=== PATIENT | female | born 1955 | race Caucasian/White ===

== ENCOUNTER 2018-02-03 06:00 | Inpatient (IN) | payer BC, OTHER ==
[2018-01-22 12:06] LABS: HEMATOCRIT 44.8 % (37.0-47.0); HEMOGLOBIN 15.2 gm/dL (12.0-15.0); MCV 88.2 fL (80.0-100.0); RBC 5.09 mil/uL (4.20-5.00); RDW 13.1 % (10.5-14.5); URINE BILIRUBIN NEGATIVE (Negative); URINE BLOOD NEGATIVE (Negative); URINE CLARITY CLEAR; URINE COLOR YELLOW; URINE GLUCOSE-RANDOM* NEGATIVE (Negative); URINE KETONES NEGATIVE (Negative); URINE NITRITE-REFLEX NEGATIVE (Negative); URINE PROTEIN (DIPSTICK) NEGATIVE (Negative); URINE UROBILINOGEN 0.2 E.U./dl (0.2-1.0); WBC 8.1 thou/uL (4.0-11.0)
[2018-01-22 12:07] LABS: URINE LEUKOCYTES-REFLEX 1+ (Negative)
[2018-01-22 12:16] LABS: ALBUMIN 4.3 g/dL (3.4-5.0); CALCIUM 10.3 mg/dL (8.5-10.1); CREATININE 0.8 mg/dL (0.6-1.0); POTASSIUM 4.5 mmol/L (3.5-5.1)
[2018-01-22 12:20] LABS: PROTIME 10.3 Seconds (9.3-11.4)
[2018-01-22 12:28] LABS: SQUAMOUS >10 Many /LPF (0-3)
[2018-01-22 12:29] LABS: CASTS None Seen /LPF (None Seen); CRYSTALS None Seen /LPF (None Seen); URINE RBC None Seen /HPF (0-2); URINE WBC-REFLEX 6-15 Few /HPF (0-5)
[~2018-02-03] VITALS: Ht 167.6 cm; Wt 106.1 kg
[2018-02-03] VITALS (12 sets, daily range): BP systolic 106–145; BP diastolic 44–86
--- NOTE | ~2018-02-03 | O ---
[facility] [place] [address] OPERATIVE REPORT Name: OSCARPAULETTE B Room #: 450-P ADM IN M.R.#: [id number] Admission: 02/03/18 Attend Phys: Jed Garcia MD Discharge: Date of : 53 Report #: [id number] THIS REPORT FOR: //name// CC: Jed Cooper DATE OF SERVICE: 02/03/2018 PREOPERATIVE DIAGNOSIS: End-stage degenerative osteoarthritis, right knee. POSTOPERATIVE DIAGNOSIS: End-stage degenerative osteoarthritis, right knee. PROCEDURE: Right total knee arthroplasty. HISTORY OF PRESENT ILLNESS: This 62-year-old female has progressive degenerative osteoarthritis of the right knee with mild varus malalignment and significant three-compartment degenerative change. She has tried conservative measures for some time, without clear lasting benefit. She has elected to go ahead with right total knee arthroplasty at this time. DESCRIPTION OF PROCEDURE: The patient was taken to the operating room, where she was placed under general anesthesia. A femoral nerve block was also applied. The right leg and knee were meticulously prepped and draped. A thigh tourniquet was applied and inflated to 300 mmHg. An anterior longitudinal skin incision was made and extended through the medial retinaculum. The patella was reflected laterally. Marked degenerative changes in all 3 compartments was noted. The Meneses and NephFusionAds knee system was utilized. Intramedullary guides were used on both the femur and the tibia. The femur was cut in 5 degrees of valgus and the tibia cut perpendicular to the long axis of bone, correcting the mild preoperative varus malalignment. Sufficient bone was resected to correct the mild preoperative flexion contracture. The patellar surface was resected using a patellar clamp and guide. The femur seemed best suited for a size 4 femoral component. The tibia fit nicely with a size 3 tibial component. A 10-mm polyethylene insert resulted in good alignment, full knee extension and flexion beyond 140 degrees. The patella was best suited for a size 32-mm patellar button, which was seated using appropriate anchor holes. The trial components were removed. The intramedullary canal was blocked with a bone block on both the femoral and tibial sides. Methyl methacrylate cement was mixed and injected into the porous surface of the tibia. The permanent components were brought up onto the field. The Meneses and Nephew size 3 Mervat II right tibial baseplate was then inserted into the proximal tibia. It seated nicely and appeared to be secure. Excess cement was removed from around its margin. A 10-mm Legion cruciate-retaining high flexion polyethylene liner was then inserted. This snapped into position and seated nicely and appeared to be secure. A size 4 right cruciate-retaining Legion femoral component was impacted on the distal femur. It also seated nicely and appeared to be secure. A [address] [address] OPERATIVE REPORT Name: PAULETTE MOORE Room #: 450-P [facility] IN M.R.#: [id number] Admission: 02/03/18 Attend Phys: Jed Garcia MD Discharge: Date of : 53 Report #: [id number] Mervat II patellar component using the 32 mm size was then inserted on to the patella using appropriate anchor holes and cement. This was secured with a patellar clamp until the cement had hardened. All excess cement was removed from around the margin of the implants. Once the cement was cured, range of motion and stability was assessed and felt to be satisfactory. The knee demonstrated full knee extension and flexion beyond 140 degrees with good stability. The patella tracked nicely and appeared to be stable. A single Hemovac was left in the wound exiting through a separate stab incision. The tourniquet was deflated after a total tourniquet time of 45 minutes. The fascia was closed with multiple #1 Vicryl sutures. The subcutaneous tissues were closed with 0 Monocryl. The skin was closed with skin sai. A sterile dressing was applied. The patient was awakened and returned to the recovery room in good condition. <ELECTRONICALLY SIGNED> By: Jed Garcia MD 02/04/18 [id number] 1109 Jed Garcia MD /nt
--- NOTE | ~2018-02-03 | EKG ---
[place] [address] [facility] [place] [address] ELECTROCARDIOGRAM REPORT Name: OSCARPAULETTE Room #: [facility]#: [id number] Admission: Attend Phys: Jed Garcia MD Discharge: Date of : 53 Report #: [id number] THIS REPORT FOR: //name// [facility] Test Date: 2018-01-22 Test Time: 12:04:33 Pat Name: PAULETTE MOORE Department: Room: Gender: F Repulping Supervisor: logan : 1955 Requested By: Jed Garcia Order Number: [id number] MD: Terry Gamboa Measurements Intervals [place] Rate: 77 P: -19 [place]: 146 QRS: -48 QRSD: 87 T: 102 QT: 504 QTc: 571 Interpretive Statements Sinus rhythm Abnormal R-wave progression, late transition Possible inferior infarct, age indeterminate Nonspecific T wave abnormality Prolonged QT interval Compared to ECG 03/21/2015 13:42:53 No significant change was found Electronically Signed On 01-23-2018 7:44:35 HEEL BURNISHER by Terry Gamboa [email or web address] <ELECTRONICALLY SIGNED> By: Terry Gamboa MD, [facility] 01/23/18 0744 1204 1204 Terry Gamboa MD, [facility] /EPI
[~2018-02-03 06:00] MED LIST: ASPIRIN325 PO; CENTRUM SILVER1 EAC4 PO; CO Q-10100 MG PO; LISINOPRIL20 MG PO; NAPROSYN500 MG PO; PRAVACHOL20 MG PO; VITAMIN C500 M1 PO
[2018-02-04 03:41] VITALS: BP 121/60
[2018-02-04 05:41] LABS: ABSOLUTE NEUTROPHILS 8.7 thou/uL (1.4-8.2); BASOPHILS 0.1 % (0.0-2.0); EOSINOPHILS 0.1 % (0.0-3.0); HEMATOCRIT 30.7 % (37.0-47.0); HEMOGLOBIN 10.5 gm/dL (12.0-15.0); LYMPHOCYTES 10.5 % (24.0-44.0); MCH 30.5 pg (26.0-34.0); MCHC 34.2 g/dL (28.0-37.0); MCV 89.3 fL (80.0-100.0); MONOCYTES 7.9 % (1.0-8.0); PLATELET COUNT 295 thou/uL (150-400); POLYS 81.4 % (36.0-66.0); RBC 3.44 mil/uL (4.20-5.00); RDW 12.9 % (10.5-14.5); WBC 10.7 thou/uL (4.0-11.0)
[2018-02-04 05:47] LABS: CALCIUM 8.6 mg/dL (8.5-10.1); CREATININE 0.7 mg/dL (0.6-1.0); MAGNESIUM 1.8 mg/dL (1.8-2.4); POTASSIUM 4.2 mmol/L (3.5-5.1)
[2018-02-04 07:36] VITALS: BP 111/53
[2018-02-04 08:00] VITALS: BP 111/53
[2018-02-04 15:19] VITALS: BP 96/48
[2018-02-04 19:25] VITALS: BP 142/61
[2018-02-05 03:09] LABS: HEMATOCRIT 31.2 % (37.0-47.0); HEMOGLOBIN 10.5 gm/dL (12.0-15.0); MCH 30.3 pg (26.0-34.0); MCHC 33.7 g/dL (28.0-37.0); MCV 89.9 fL (80.0-100.0); RBC 3.48 mil/uL (4.20-5.00); WBC 10.2 thou/uL (4.0-11.0)
[2018-02-05 05:38] VITALS: BP 116/60
[2018-02-05 07:49] VITALS: BP 152/60
[2018-02-05 16:13] VITALS: BP 119/39
[2018-02-05 19:33] VITALS: BP 132/53
[2018-02-06 03:55] VITALS: BP 161/53
[2018-02-06 05:11] LABS: HEMATOCRIT 31.5 % (37.0-47.0); MCH 30.9 pg (26.0-34.0); MCHC 34.9 g/dL (28.0-37.0); MCV 88.6 fL (80.0-100.0); RBC 3.56 mil/uL (4.20-5.00); RDW 12.5 % (10.5-14.5)
[2018-02-06 08:51] VITALS: BP 128/45
[2018-02-06 10:36] VITALS: BP 128/45
== END 2018-02-06 11:05 | disposition home or self-care (01) | DRG 470 ==
LOC: PRE 06:00 → TBA 06:28 → 4W 10:24 → PRE 10:29 → ENTRNSPT 02-06 10:55 → EDTRNSPTSTS 02-06 10:56 → 4W 02-06 11:05
PROVIDERS: Nurse Practitioner; Orthopaedic Surgery
PROC: 0SRC0J9 Replacement of Right Knee Joint with Synthetic Substitute, Cemented, Open Approach (ICD-10-PCS; principal; 2018-02-03)
DX: M17.11 Unilateral primary osteoarthritis, right knee (principal); I10 Essential (primary) hypertension; Z96.652 Presence of left artificial knee joint; E78.5 Hyperlipidemia, unspecified; Z86.73 Personal history of transient ischemic attack (TIA), and cerebral infarction without residual deficits; Z87.891 Personal history of nicotine dependence; Z87.81 Personal history of (healed) traumatic fracture; Z98.42 Cataract extraction status, left eye; Z98.41 Cataract extraction status, right eye; Z68.37 Body mass index [BMI] 37.0-37.9, adult; Z79.899 Other long term (current) drug therapy
CPT/HCPCS: 10047; 50010; 50101; 50415; 50954; 51130; 51225; 51412; 51771; 53364; 56525; 57095; 57104; 57180; 62110; 62900; 70005

== ENCOUNTER 2019-06-11 10:26 | Emergency (ER) | payer BC, OTHER ==
[~2019-06-11] VITALS: Ht 165.1 cm; Wt 83.9 kg
[2019-06-11] MEDS ORDERED: DOXYCYCLINE 10100 M2 PO ×2 (12:13→12:20)
[2019-06-11] MEDS ORDERED: BENZONATATE200 MG PO ×2 (12:13→12:20)
[2019-06-11] MEDS ORDERED: PROAIR DIGIHAL90 MCG INH ×2 (12:13→12:20)
[2019-06-11 13:20] VITALS: BP 135/109
== END 2019-06-11 13:20 | disposition home or self-care (01) ==
LOC: ER 10:26
DX: J18.9 Pneumonia, unspecified organism (principal); I10 Essential (primary) hypertension; E78.5 Hyperlipidemia, unspecified; Z86.73 Personal history of transient ischemic attack (TIA), and cerebral infarction without residual deficits; Z96.652 Presence of left artificial knee joint; Z85.3 Personal history of malignant neoplasm of breast; Z98.890 Other specified postprocedural states; Z79.899 Other long term (current) drug therapy; Z87.891 Personal history of nicotine dependence

== ENCOUNTER 2019-06-29 09:58 | Inpatient (IN) | payer BC, OTHER ==
[~2019-06-29] VITALS: Ht 167.6 cm; Wt 121.1 kg
[2019-06-29] VITALS (7 sets, daily range): BP systolic 100–129; BP diastolic 61–88
[~2019-06-29 09:58] MED LIST changes: +BENZONATATE200 MG PO; +DOXYCYCLINE 10100 M2 PO; +PROAIR DIGIHAL90 MCG INH
[2019-06-29 10:59] LABS: ABSOLUTE NEUTROPHILS 6.9 thou/uL (1.4-8.2); BASOPHILS 0.8 % (0.0-2.0); EOSINOPHILS 0.6 % (0.0-3.0); HEMATOCRIT 45.3 % (37.0-47.0); HEMOGLOBIN 15.1 gm/dL (12.0-15.0); LYMPHOCYTES 10.4 % (24.0-44.0); MCH 30.7 pg (26.0-34.0); MCHC 33.4 g/dL (28.0-37.0); MCV 91.9 fL (80.0-100.0); MONOCYTES 6.5 % (1.0-8.0); PLATELET COUNT 362 thou/uL (150-400); POLYS 81.7 % (36.0-66.0); RBC 4.93 mil/uL (4.20-5.00); RDW 14.6 % (10.5-14.5); WBC 8.5 thou/uL (4.0-11.0)
[2019-06-29 11:10] LABS: ANION GAP 7 mmol/L (7-16); BUN 39 mg/dL (7-18); CALCIUM 9.1 mg/dL (8.5-10.1); CHLORIDE 93 mmol/L (98-107); CO2 27 mmol/L (21-32); CREATININE 1.1 mg/dL (0.6-1.0); GLUCOSE 146 mg/dL (74-106); POTASSIUM 4.5 mmol/L (3.5-5.1); SODIUM 127 mmol/L (136-145)
[2019-06-29 11:19] LABS: MAGNESIUM 1.8 mg/dL (1.8-2.4); TROPONIN-I <0.06 ng/mL (<0.06)
[2019-06-29] MEDS ORDERED: FUROSEMIDE 40 M40 MG PO (11:31)
[2019-06-29] MEDS ORDERED: CEFDINIR300 MG PO (11:32)
[2019-06-29] MEDS ORDERED: KLOR-CON M2020 MEQ PO (11:32)
--- NOTE | 2019-06-29 12:52 | EKG ---
[facility] [place] [address] ELECTROCARDIOGRAM REPORT Name: PAULETTE MOORE Room #: 170-15 ADM IN M.R.#: [id number] Admission: 06/29/19 Attend Phys: Silver Cooper MD Discharge: Date of : 53 Report #: [id number] THIS REPORT FOR: cc: Silver Cooper MD, Neal A. MD Couchonnal, Luis F. MD ~ THIS REPORT FOR: //name// [facility] ED Test Date: 2019-06-29 Test Time: 10:18:27 Pat Name: PAULETTE MOORE Department: Room: [facility] Gender: F Traffic Signal Repairer: hallie : 1955 Requested By: Johnnie Vaughn Order Number: [id number] MD: Marcus Conde Measurements Intervals [place] Rate: 150 P: AR: QRS: -44 QRSD: 81 T: 104 QT: 271 QTc: 428 Interpretive Statements Atrial flutter/fibrillation Compared to ECG 01/22/2018 12:04:33 Electronically Signed On 06-29-2019 12:50:48 CDT by Marcus Conde [email or web address] <ELECTRONICALLY SIGNED> By: Marcus Conde MD 06/29/19 1250 1018 1018 Marcus Conde MD /EPI
--- NOTE | 2019-06-29 13:04 | NUR ---
ATTEMPTED TO CALL REPORT TO CCU. [facility] NURSE IS NOT AVAILABLE AND WILL CALL BACK IN 10 MIN
[2019-06-29 15:04] LABS: ALBUMIN 3.7 g/dL (3.4-5.0); SGOT 46 U/L (15-37); SGPT 60 U/L (30-65); TOTAL PROTEIN 7.3 g/dL (6.4-8.2)
--- NOTE | 2019-06-29 18:38 | NUR ---
PT CARE ASSUMED AT APPROXIMATELY 1400. PT ASSESSMENTS CHARTED. PT MEDICATION CHARTED. DILTIAZEM DRIP AT 20. PT IS SBA TO BSC. PT HAS EDEMA BLE.
[2019-06-30 05:06] VITALS: BP 119/78
[2019-06-30 05:33] LABS: CREATININE 1.2 mg/dL (0.6-1.0); POTASSIUM 4.8 mmol/L (3.5-5.1)
--- NOTE | 2019-06-30 05:37 | NUR ---
PROGRESS PT A/O X4 , DENIES PAIN. GOAL FOR THE NIGHT IS SHE WANTS TO SLEEP. CARDIZIEM GTT STILL GOING AT 20CC/HR HEART RATE IN THE 70'S TO 90'S. PT DENIES PAIN. UP AD SAGAR GAIT STEADY . VOIDING QS, TOLERATING DIET. BILATERAL LE EDEMA STILL 2 TO 3+. CD'S IN PLACE PT SLEPT THROUGHOUT NOC. CONTINUE POC.
[2019-06-30 07:40] VITALS: BP 104/59
--- NOTE | 2019-06-30 10:05 | 2DMMODE ---
[facility] [place] [address] 2 D/M-MODE ECHOCARDIOGRAM Name: PAULETTE MOORE [place] Room #: 217-P ADM IN M.R.#: [id number] Admission: 06/29/19 Attend Phys: Silver Cooper MD Discharge: Date of : 53 Report #: [id number] THIS REPORT FOR: cc: Silver Cooper MD, Neal A. MD Lammoglia, Francisco J. MD ~ APPROVED REPORT Study performed: 06/30/2019 08:55:21 EXAM: Comprehensive 2D, Doppler, and color-flow Echocardiogram Patient Location: Bedside Room #: 217 Status: routine BSA: 2.31 HR: 85 bpm BP: 119/78 mmHg Rhythm: Atrial Fibrillation Other Information Study Quality: Adequate Technically limited study due to morbid obesity. Indications Afib with RVR, BLE, short of breath, CHF. Hx: HTN, HLP. 2D Dimensions RVDd: 39.88 mm IVSd: 9.83 (7-11mm) LVOT Diam: 20.75 (18-24mm) LVDd: 48.44 mm PWd: 9.91 (7-11mm) LVDs: 42.01 (25-40mm) Aortic Root: 37.16 mm Volumes Left Atrial Volume (Systole) Single Plane 4CH: 89.68 mL Single Plane 2CH: 90.75 mL LA ESV Index: 43.00 mL/m2 Aortic Valve AoV Peak Sukhi.: 1.05 m/s AO Peak Gr.: 4.39 mmHg LVOT Max P.75 mmHg LVOT Max V: 0.66 m/s [facility] [place] [address] 2 D/M-MODE ECHOCARDIOGRAM Name: DREA MOOREANA PAULA Beckham Room #: 217-P ADM IN .R.#: [id number] Admission: 06/29/19 Attend Phys: Silver Cooper, Discharge: Date of : 53 Report #: [id number] MARIA DE JESUS Vmax: 2.13 cm2 Mitral Valve MV Decel. Time: 102.34 ms MV E Max Sukhi.: 1.19 m/s Tricuspid Valve TR Peak Sukhi.: 2.70 m/s TR Peak Gr.: 30.00 mmHg Left Ventricle The left ventricle is normal size. There is normal left ventricular wall thickness. Left ventricular systolic function is moderately decreased. LVEF is 35%. This study is not technically sufficient to allow evaluation of the LV diastolic function due to atrial fibrillation. Right Ventricle The right ventricle is normal size. Right ventricle is hypokinetic. Atria Left atrium is moderately dilated. Right atrium is mildly dilated. Aortic Valve The aortic valve is normal in structure. Trace aortic regurgitation. There is no aortic valvular stenosis. Mitral Valve The mitral valve is normal in structure. Moderate mitral regurgitation. No evidence of mitral valve stenosis. Tricuspid Valve The tricuspid valve is normal in structure. Moderate to severe tricuspid regurgitation. Estimated PAP is 30mmHg plus the right atrial pressure. Pulmonic Valve Pulmonic valve is not well visualized. Great Vessels The aortic root is normal in size. Ascending aorta is not well visualized. IVC is not well visualized. Pericardium [facility] [address] [address] 2 D/M-MODE ECHOCARDIOGRAM Name: PAULETTE MOORE Room #: 217-P ADM IN [facility].#: [id number] Admission: 06/29/19 Attend Phys: Silver Cooper, Discharge: Date of : 53 Report #: [id number] There is no pericardial effusion. <Conclusion> The left ventricle is normal size. LVEF is 35%. Left atrium is moderately dilated. Right atrium is mildly dilated. The aortic valve is normal in structure. Trace aortic regurgitation. The mitral valve is normal in structure. Moderate mitral regurgitation. The tricuspid valve is normal in structure. Moderate to severe tricuspid regurgitation. Estimated PAP is 30mmHg plus the right atrial pressure. There is no pericardial effusion. <ELECTRONICALLY SIGNED> By: Kane Sahu MD 06/30/19 1004 1004 1004 Kane Sahu MD /INF
[2019-06-30 16:30] VITALS: BP 97/57
--- NOTE | 2019-06-30 17:19 | NUR ---
PT. IS SITTING UP MOST OF THE AFTERNNON NOW, IN HER CHAIR WITH LOWER EXRTEMETIES ELEVATED ON PILLOWS/CHAIR. LOWER EXTREMITIES ARE WEEPING WITH STRAW COLOR, EXUDATE FREQUENTLY. SHE DENIES ANY PAIN AT THIS TIME, NO CHEST PAIN. VITAL SIGNS AE STABLE AND DENIES SOB. SHE AMBULATED THIS AM AROND THE WHOLE UNIT AREA. WILL CONTINUE TO MONITOR.
[2019-06-30 20:32] VITALS: BP 106/76
[2019-06-30 20:33] VITALS: BP 111/61
[2019-06-30 20:58] LABS: BE(vivo) -9.5 mmol/L (-2 to +3); HCO3 14.3 mmol/L (22.0-26.0); PCO2 26.5 mmHg (35.0-45.0); pH 7.349 (7.360-7.450)
[2019-06-30 21:00] LABS: PO2 52.2 mmHg (80.0-100.0)
[2019-07-01] VITALS (8 sets, daily range): BP systolic 66–126; BP diastolic 38–88
[2019-07-01 02:27] LABS: ABSOLUTE NEUTROPHILS 9.6 thou/uL (1.4-8.2); BASOPHILS 0.3 % (0.0-2.0); EOSINOPHILS 0.1 % (0.0-3.0); HEMATOCRIT 45.3 % (37.0-47.0); HEMOGLOBIN 14.7 gm/dL (12.0-15.0); LYMPHOCYTES 8.5 % (24.0-44.0); MCH 30.2 pg (26.0-34.0); MCHC 32.5 g/dL (28.0-37.0); MONOCYTES 6.2 % (1.0-8.0); PLATELET COUNT 345 thou/uL (150-400); POLYS 84.9 % (36.0-66.0); RBC 4.87 mil/uL (4.20-5.00); RDW 15.5 % (10.5-14.5); WBC 11.3 thou/uL (4.0-11.0)
[2019-07-01 02:35] LABS: ALBUMIN 3.4 g/dL (3.4-5.0); CALCIUM 8.4 mg/dL (8.5-10.1); CREATININE 2.1 mg/dL (0.6-1.0); POTASSIUM 5.6 mmol/L (3.5-5.1); TOTAL BILIRUBIN 2.1 mg/dL (<0.1-1.0); TOTAL PROTEIN 6.7 g/dL (6.4-8.2)
--- NOTE | 2019-07-01 05:21 | NUR ---
ASSESSMENTS CHARTED, MEDS GIVEN CHARTED. PATIENT SHORT OF BREATH AT START OF SHIFT. OXYGEN LEVEL IN 80'S. PLACED ON COMFORT FLEX HIGH FLOW NASAL CANNULA AT 50 LITERS/MIN AND 90% OXYGEN. BREATHING TREATMENTS ORDERED. LASIX ORDERED, DAWN PLACED FOR ACCURATE I&O. BLOOD GAS DONE, CRITICAL PO2, LACTATE AND O2 SAT MEASUREMENT. INFORMED DR. GOMEZ WHO CONSULTED DR. RIVERS WHO SAW THE PATIENT. PATIENT DID NOT PRODUCE URINE DURING SHIFT. DR GOMEZ CANCELLED LASIX TREATMENTS, ORDERED BOLUS OF NS TO BE FOLLOWED BY NS DRIP. PATIENT C/O CONSTIPATION, GIVEN SUPPOSITORY, HAD VERY SMALL BOWEL MOVEMENT. FALL PRECAUTIONS IN PLACE DURING SHIFT.
--- NOTE | 2019-07-01 08:14 | NUR ---
MORNING ASSESSMENT CHARTED, FIRST SET VSS BP 66/38, AND P AT 48-52/MIN. SHON BERNAL D/C,HENRY MCNAIR FOOD COUNTER WORKER, DR GOMEZ, AND DR BINGHAM AT BEDSIDE. BP 126/82 AT THIS TIME, AND WILL CONTINUE TO MONITOR PATIENT.
[2019-07-01 08:20] LABS: CALCIUM 8.6 mg/dL (8.5-10.1); CREATININE 2.2 mg/dL (0.6-1.0); POTASSIUM 5.6 mmol/L (3.5-5.1)
--- NOTE | 2019-07-01 08:41 | EKG ---
[facility] [place] [address] ELECTROCARDIOGRAM REPORT Name: PAULETTE MOORE Room #: 217- ADM IN M.R.#: [id number] Admission: 06/29/19 Attend Phys: Silver Cooper MD Discharge: Date of : 53 Report #: [id number] THIS REPORT FOR: cc: Silver Cooper MD, Neal A. MD Lundgren,Terry Medrano MD [facility] ~ THIS REPORT FOR: //name// [facility] Test Date: 2019-07-01 Test Time: 08:02:46 Pat Name: PAULETTE MOORE Department: Room: 217 P Gender: F Seam Taper Machine: MAXI : 1955 Requested By: Neida Campos Order Number: [id number] MD: Terry Gamboa Measurements Intervals [place] Rate: 56 P: MT: QRS: -32 QRSD: 61 T: QT: 645 QTc: 623 Interpretive Statements Atrial fibrillation Inferior infarct, old Anteroseptal infarct, age indeterminate Nonspecific T wave abnormality Compared to ECG 06/29/2019 10:18:27 Heart rate has slowed Electronically Signed On 07-01-2019 8:39:44 CDT by Terry Gamboa [email or web address] <ELECTRONICALLY SIGNED> By: Terry Gamboa MD, [facility] 07/01/19 0839 1 1 Terry Gamboa MD, FAC /EPI
[2019-07-01 12:15] LABS: BE(vivo) -5.6 mmol/L (-2 to +3); HCO3 17.6 mmol/L (22.0-26.0); PCO2 28.8 mmHg (35.0-45.0); PO2 99.2 mmHg (80.0-100.0); pH 7.403 (7.360-7.450); sO2 97.6 % (92.0-98.0)
[2019-07-01 12:57] LABS: URINE BILIRUBIN NEGATIVE (Negative); URINE BLOOD 3+ (Negative); URINE CLARITY SL CLOUDY; URINE COLOR YELLOW; URINE GLUCOSE-RANDOM* NEGATIVE (Negative); URINE KETONES NEGATIVE (Negative); URINE NITRITE-REFLEX NEGATIVE (Negative); URINE PROTEIN (DIPSTICK) 1+ (Negative); URINE UROBILINOGEN 0.2 E.U./dl (0.2-1.0)
[2019-07-01 12:59] LABS: URINE LEUKOCYTES-REFLEX 1+ (Negative)
[2019-07-01 13:12] LABS: RENAL EPITHELIAL CELLS 0-3 Few /LPF (None Seen); SQUAMOUS 0-3 Few /LPF (0-3)
[2019-07-01 13:13] LABS: MUCUS 0-3 Light strn/LPF (None Seen); URINE RBC >20 Many /HPF (0-2); URINE WBC-REFLEX 6-15 Few /HPF (0-5)
[2019-07-01 13:15] LABS: CRYSTALS None Seen /LPF (None Seen); HYALINE CASTS 0-3 Few /LPF (None Seen); TRANSITIONAL EPITHEL CELL 0-3 Few /LPF (None Seen)
[2019-07-02 04:31] VITALS: BP 116/69
[2019-07-02 05:45] LABS: CALCIUM 8.5 mg/dL (8.5-10.1); CREATININE 1.9 mg/dL (0.6-1.0); PHOSPHORUS 5.9 mg/dL (2.5-4.9)
[2019-07-02 06:02] LABS: POTASSIUM 3.1 mmol/L (3.5-5.1)
--- NOTE | 2019-07-02 06:35 | NUR ---
PT A&O X4 ABLE TO MAKE NEEDS KNOWN. DENIES PAIN SO FAR THIS SHIFT. ASSIST X1 WITH TRANSFERS. CONTINUES ON LASIX GTT. AFIB ON THE MONITOR. PT HAD A 12 RUNS OF VTACH OVERNIGHT. CALLS APPROPRIATELY.
--- NOTE | 2019-07-02 06:56 | NUR ---
PT SEEN BY NEPHRLOGIST THIS MORNING PHYSICIANS WANTS DAILY STANDING WEIGHT IN THE MORNING.
[2019-07-02 07:40] VITALS: BP 122/79
[2019-07-02 11:13] VITALS: BP 150/58
[2019-07-02 16:10] VITALS: BP 103/48
--- NOTE | 2019-07-02 16:54 | NUR ---
PT. IS "HAVING A BETTER DAY TODAY". DENIES AND CHEST PAIN NOR ANY SHORTNESS OF BREATHE AT THIS TIME. LASIX GTT CONTINUES. DENIES ANY NEED FOR PAIN MEDICATION AT THIS TIME, NO CHEST PAIN EITHER. WILL CONTINUE TO MONITOR.
[2019-07-02 19:18] VITALS: BP 103/58
[2019-07-03] VITALS (11 sets, daily range): BP systolic 92–129; BP diastolic 47–82
--- NOTE | 2019-07-03 05:47 | NUR ---
assumed pt care at 1900, pt is awake, alert and orientedx4, afib on the monitor, HR increased, cardiology notified, cardizem running at 5, vss, denies pain or sob, medication given as ordered, pt on elctrolyte procol, owusu in place, good output, wounds to the LE dressing intact, in bed with no distress noted, will continue to monitor
[2019-07-03 06:03] LABS: ALBUMIN 4.1 g/dL (3.4-5.0); CALCIUM 8.1 mg/dL (8.5-10.1); CREATININE 1.5 mg/dL (0.6-1.0)
[2019-07-03 06:39] LABS: POTASSIUM 2.4 mmol/L (3.5-5.1)
--- NOTE | 2019-07-03 15:24 | NUR ---
Chart reviewed and case discussed with the care team. Attempted to reach pt in her room via phone with no response. Unit Rn took phone to the pt to discuss possible HH referral at ok. Pt is agreeable. She has not had hh for more than 10 years and is normally indep w/o an assistive device. She does not have a preference. She is weaker than normal and is being seen by therapy. She lives in a spit level home with her spouse. Two steps to enter and 6 to the main level where she spends most of the day. She is weaning off o2 and being seen by wound care for bilat le cellulitis. Her lower ext are being wraped daily. She will need a cardiac cath next week once her other medical issues have stabalized. Covid testing was negative. Pt's primary ins is thru her spouse and she has medicare part A only as a secondary. Will check with [facility] or [facility] to see if they can accept for hh at ok. Ca timeframe is uncertain. Will follow along.
--- NOTE | 2019-07-03 16:06 | NUR ---
FAXED REFERRAL TO [facility] SPOKE WITH VINNY IN INTAKE SHE RECEIVED REFERRAL AND CAN ACCEPT AT DC. ANTICIPATE DC EARLY NEXT WEEK. DP TO FOLLOW.
--- NOTE | 2019-07-03 17:26 | NUR ---
ASSUMED CARE OF PT AT SHIFT CHANGE. ASSESSMENTS CHARTED. MEDS GIVEN PER MAY. PT A&OX4, NO C/O PAIN. PT ON 2L NC, NO C/O SOA. HR SLOWLY TRENDED UP DURING SHIFT, IN 120-140S. NOTIFIED DR. GOMEZ, WHO ORDERED PO DILTIAZEM. WILL CONTINUE TO MONITOR AND FOLLOW POC.
--- NOTE | 2019-07-03 17:36 | HC ---
[facility] [place] [address] CONSULTATION Name: PAULETTE MOORE Room #: 217-P ADM IN M.R.#: [id number] Admission: 06/29/19 Attend Phys: Silver Cooper MD Discharge: Date of : 53 Report #: [id number] THIS REPORT FOR: cc: Silver Cooper MD, Neal A. MD Althoff,Dann Larry MD ~ CC: Silver Cooper DATE OF SERVICE: 06/30/2019 CHIEF COMPLAINT: Bilateral lower extremity ulcerations. HISTORY OF PRESENT ILLNESS: This is a 64-year-old female patient who was admitted to the hospital with bilateral lower extremity swelling. She developed blisters and then ulcerations on the posterior aspects of both legs, greater on the left than on the right. She has significant pain, drainage and odor. I have been asked to see her with regard to wound care. PAST MEDICAL HISTORY: Prior history of congestive heart failure, atrial fibrillation with rapid ventricular response, community-acquired pneumonia, hypertension, hyperlipidemia. SOCIAL HISTORY: Positive for occasional alcohol use. She is a former smoker. No recreational drug use. FAMILY HISTORY: Noncontributory. ALLERGIES: No known drug allergies. MEDICATIONS: ProAir, doxycycline, CoQ10, Lasix, Omnicef, Klor-Con, Pravachol, Zestril, vitamin C. REVIEW OF SYSTEMS: CONSTITUTIONAL: The patient denies fever, chills or weight loss. NEUROLOGICAL: The patient denies focal weakness, numbness or tingling. EYES: The patient denies visual changes, redness, or drainage. ENT: The patient denies earache, nasal drainage or sore throat. CARDIOVASCULAR: The patient denies chest pain, palpitations or diaphoresis. PULMONARY: The patient does complain of shortness of breath and some cough and dyspnea with exertion. GASTROINTESTINAL: The patient denies nausea, vomiting, diarrhea or abdominal pain. ORTHOPEDIC: The patient does complain of pain and swelling of the lower extremities, some ulceration on the dorsal aspect of the left dorsal foot. Denies other areas of open ulceration. Other systems in a 14-point review of systems are negative. [address] [address] CONSULTATION Name: PAULETTE MOORE [place] Room #: 217-P [facility] [place] ..#: [id number] Admission: 06/29/19 Attend Phys: Silver Cooper MD Discharge: Date of : 53 Report #: [id number] PHYSICAL EXAMINATION: VITAL SIGNS: At this time include temperature 97.6, pulse 72, respiratory rate 20, blood pressure 97/57. GENERAL: This is a somewhat chronically ill-appearing female patient who appears to be in no distress. HEENT: Head normocephalic. Nose and throat are clear. NECK: Supple. LUNGS: Diminished. HEART: Irregular. ABDOMEN: Soft. Bowel sounds present. EXTREMITIES: Examination of the lower extremities demonstrates 3+ edema bilaterally. She has some open ulceration on the dorsal aspect of the left foot and some generalized weeping through the skin. No overt evidence of cellulitis at this time. NEUROLOGIC: The patient is alert, oriented and appropriate. LABORATORY DATA: Includes sodium 130, potassium 4.8, chloride 96, BUN 42, creatinine 1.2, albumin 3.7. White blood cell count 8.5, hemoglobin 15.1. CLINICAL IMPRESSION: 1. Bilateral lower extremity edema with cellulitis involving the left foot. 2. Prediabetes. 3. Atrial fibrillation with rapid ventricular response and congestive heart failure. 4. Hypertension. 5. Hyperlipidemia. 6. History of tobacco abuse. RECOMMENDATIONS: At this point in time, we will recommend wrapping both lower extremities with Kerlix to be secured with tape. We will not use Luca wraps, as I suspect significant vascular disease. We will check arterial Dopplers. Elevate the lower extremities for edema control. Additional decision making be forthcoming following review of Dopplers. I appreciate being asked to see her in consultation. <ELECTRONICALLY SIGNED> By: Dann Morejon MD 07/03/19 1736 [id number] 1723 Dann Morejon MD /nt
[2019-07-04 00:45] VITALS: BP 90/64
[2019-07-04 03:58] LABS: ALBUMIN 4.2 g/dL (3.4-5.0); CALCIUM 8.6 mg/dL (8.5-10.1); CREATININE 1.4 mg/dL (0.6-1.0); PHOSPHORUS 2.9 mg/dL (2.5-4.9); POTASSIUM 3.5 mmol/L (3.5-5.1)
[2019-07-04 04:45] VITALS: BP 90/54
[2019-07-04 09:00] VITALS: BP 102/66
[2019-07-04 13:40] VITALS: BP 91/65
[2019-07-04 16:15] VITALS: BP 99/69
--- NOTE | 2019-07-04 17:40 | NUR ---
ASSESSMENT CHARTED. PT ALERT AND ORIENTED. HAD LOW BP THIS AM. ON AMIODARONE DRIP. UP IN THE CHAIR THIS SHIFT. WOUND CARE PROVIDED. AFIB ON TELE. SOB NOTED WITH ACTIVITY. WILL CONTINUE TO MONITOR.
[2019-07-04 20:05] VITALS: BP 103/78
[2019-07-05 00:30] VITALS: BP 110/54
[2019-07-05 03:43] LABS: HEMATOCRIT 45.6 % (37.0-47.0); MCH 30.1 pg (26.0-34.0); MCV 91.2 fL (80.0-100.0); RDW 15.1 % (10.5-14.5); WBC 14.3 thou/uL (4.0-11.0)
[2019-07-05 03:54] LABS: ALBUMIN 4.5 g/dL (3.4-5.0); CALCIUM 8.9 mg/dL (8.5-10.1); CREATININE 2.1 mg/dL (0.6-1.0); PHOSPHORUS 3.8 mg/dL (2.5-4.9)
[2019-07-05 04:45] VITALS: BP 98/67
--- NOTE | 2019-07-05 07:45 | NUR ---
ASSUMED PT CARE AT 1900, PT IS AWAKE, A&0X4, MAKES NEEDS KNOWN, VSS, AFIB ON THE MONITOR WITH CONTROLLED HR, NO COMPLAINS OF SOB OR CHEST PAIN, ASESSMENTS CHARTED
[2019-07-05 11:00] VITALS: BP 107/40
[2019-07-05 12:43] LABS: URINE BILIRUBIN NEGATIVE (Negative); URINE BLOOD 3+ (Negative); URINE CLARITY SL CLOUDY; URINE COLOR YELLOW; URINE GLUCOSE-RANDOM* NEGATIVE (Negative); URINE KETONES NEGATIVE (Negative); URINE LEUKOCYTES-REFLEX 1+ (Negative); URINE NITRITE-REFLEX NEGATIVE (Negative); URINE PROTEIN (DIPSTICK) TRACE (Negative)
[2019-07-05 12:50] LABS: HYALINE CASTS 4-10 Moderate /LPF (None Seen); SQUAMOUS 4-10 Moderate /LPF (0-3)
[2019-07-05 12:52] LABS: URIC ACID CRYSTALS 0-3 Few /LPF (None Seen); URINE RBC >20 Many /HPF (0-2); URINE WBC-REFLEX 6-15 Few /HPF (0-5)
--- NOTE | 2019-07-05 16:40 | NUR ---
ASSESSMENT CHARTED. PT ALERT AND ORIENTED. HAD LOW BP THIS SHIFT. UP IN THE CHAIR. SOB NOTED WITH ACTIVITY. PT PROGRESSING SLOWLY TOWARDS DISCHARGE GOAL. WILL CONTINUE TO MONITOR.
[2019-07-05 19:46] VITALS: BP 103/68
[2019-07-06 00:24] VITALS: BP 152/84
[2019-07-06 05:06] VITALS: BP 94/64
[2019-07-06 05:25] LABS: ALBUMIN 3.9 g/dL (3.4-5.0); CREATININE 1.7 mg/dL (0.6-1.0); PHOSPHORUS 3.6 mg/dL (2.5-4.9); POTASSIUM 4.3 mmol/L (3.5-5.1); TOTAL BILIRUBIN 1.3 mg/dL (<0.1-1.0); TOTAL PROTEIN 6.4 g/dL (6.4-8.2)
--- NOTE | 2019-07-06 07:52 | NUR ---
ASSUMED PT CARE AT 1900, PT IS AWAKE, A&0X4, MAKES NEEDS KNOWN, AFIB ON THE MONITOR, NO C/O CHEST PAIN OR SOB, ASESSMENTS A CHARTED, VSS
[2019-07-06 08:20] VITALS: BP 105/79
[2019-07-06 17:32] VITALS: BP 136/86
--- NOTE | 2019-07-06 17:34 | NUR ---
ASSUMED CARE OF PT AT SHIFT CHANGE. ASSESSMENTS CHARTED. MEDS GIVEN PER MAY. PT A&OX4, NO C/O PAIN OR SOA. STRESS TEST COMPLETED TODAY. PLAN TO HOPEFULLY DC ON SATURDAY. AFIB CONTINUES, HR 95-110 ON AMIODARONE DRIP. WILL CONTINUE TO MONITOR AND FOLLOW POC.
[2019-07-06 20:48] VITALS: BP 153/137
[2019-07-06 21:54] VITALS: BP 85/60
[2019-07-07 00:18] VITALS: BP 118/69
[2019-07-07 05:05] VITALS: BP 104/64
[2019-07-07 05:52] LABS: ALBUMIN 3.9 g/dL (3.4-5.0); CALCIUM 9.2 mg/dL (8.5-10.1); CREATININE 1.5 mg/dL (0.6-1.0); PHOSPHORUS 3.9 mg/dL (2.5-4.9)
--- NOTE | 2019-07-07 07:35 | NUR ---
pt states she is very tired meds given, vss, pt awoke at 0100 having a dream her bed was poisonous after talking for her for about 5 min. she relized she had a dream and was a&O x4 went back to bed and rested quietly the rest of the noc, no c/o pain, amiod gtt cont to infuse, will monitor per ppoc.
[2019-07-07 08:00] VITALS: BP 99/44
--- NOTE | 2019-07-07 10:31 | HC ---
[facility] [place] [address] CONSULTATION Name: PAULETTE MOORE Room #: 217-P ADM IN M.R.#: [id number] Admission: 06/29/19 Attend Phys: Silver Cooper MD Discharge: Date of : 53 Report #: [id number] THIS REPORT FOR: cc: Silver Cooper MD, Neal A. MD Al-Shelly,Zen Hernandez MD ~ CC: Silver Cooper REASON FOR CONSULTATION: Acute kidney injury. REASON FOR PRESENTATION: Bilateral lower extremity swelling and fluid retention. HISTORY OF PRESENT ILLNESS: This is a 64-year-old with past medical history of hypertension, hyperlipidemia, known chronic kidney disease in the past. She sees Dr. Cooper. She has a history of breast cancer, status post mastectomy. The patient presented with worsening lower extremity edema, dyspnea on exertion. She also reported to significant shortness of breath at rest. She had a significantly elevated lactate on her presentation with a lactate level of 7.0 that has trended down to 2.75. The patient ran into episodes of AFib and mild hypotension. She was ruled out for a pulmonary embolism with a CT angiogram. Post CT angiogram, the patient developed an acute kidney injury due to contrast exposure. Creatinine on presentation was in the normal range. This has gone up to 2.2 as of yesterday with significant anuria. I was asked to assist with her fluid management. The patient was initiated on albumin with Lasix combination. She had obtained significant diuresis overnight. Her urinalysis showed 1+ protein. She is not aware of any previous kidney problems. She has never been seen by a stock taker. She was ruled out for COVID virus infection. The patient had a cardiac echo that was consistent with an ejection fraction of around 35%. She also has moderate mitral regurgitation with moderate to severe tricuspid regurgitation. When evaluated this morning, she reported significant improvement in her symptoms. PAST MEDICAL AND SURGICAL HISTORY: Extensive and includes the followin. Post-mastectomy. 2. Left knee arthroscopy. 3. Hypertension. 4. Left ankle surgery. 5. Bilateral cataract surgery. MEDICATIONS: 1. Doxycycline. 2. Lisinopril. 3. Pravastatin. 4. Furosemide. ALLERGIES: None. [address] [address] CONSULTATION Name: PAULETTE MOORE Room #: 217-P [facility] IN .R.#: [id number] Admission: 06/29/19 Attend Phys: Silver Cooper MD Discharge: Date of : 53 Report #: [id number] SOCIAL HISTORY: She is an ex-smoker. No drug or alcohol abuse. REVIEW OF SYSTEMS: GENERAL: No fever or chills, but significant for weakness. CARDIOVASCULAR: As per the history of present illness. PULMONARY: Significant dyspnea on exertion and shortness of breath. GASTROINTESTINAL: No nausea or vomiting. GENITOURINARY: No frequency, no urgency. MUSCULOSKELETAL: Occasional back pain and joints pain. SKIN: Bilateral lower extremity skin rash. PHYSICAL EXAMINATION: GENERAL: Alert, oriented. She is on 3 liters by nasal cannula. VITAL SIGNS: Temperature is 36.4, blood pressure is 116/69. HEAD AND NECK: With elevated jugular venous pressure. CHEST: Decreased air entry bilaterally. CARDIOVASCULAR: Distant S1, S2. ABDOMEN: Extensive abdominal wall edema. LOWER EXTREMITIES: Extensive lower extremity edema with Luca wraps applied. LABORATORY VALUES: Sodium 132, up from 126; potassium is 3.1; BUN is 55; creatinine is 1.9; phosphorus is 5.9. ASSESSMENT AND PLAN: 1. Acute kidney injury due to contrast-induced nephropathy. 2. Atrial fibrillation with rapid ventricular response. 3. Hypertension. 4. Massive edema, anasarca, lower extremity wounds. 5. Hypokalemia or hypervolemic hyponatremia. 6. As for now, the patient's acute kidney injury is related to contrast exposure. She seems to be improving on the current measures including albumin and Lasix. 7. Daily body weight. 8. Continue diuresis, might consider some other diuretics in the road. 9. Low salt diet. 10. We will continue to follow. <ELECTRONICALLY SIGNED> By: Zen Mao MD 07/07/19 [id number] Zen Mao MD /nt
[2019-07-07 12:00] VITALS: BP 108/75
--- NOTE | 2019-07-07 15:02 | NUR ---
Nutrition: pt admitted with afib, RVR, CHF, BLE edema, cellulitis to left foot. Wound care following. Seen for LOS. Chart reviewed. PO intake documented 50-100% of meals. Pt reports fair appetite on heart healthy diet, 1200 mL fluid restriction. Noted Ensure was ordered today. BMI 43.6. 10# loss over admit related to diuresis. Will drop Ensure to once daily due to fluid restriction and overall fair/good intake. Discussed adequate protein for wound healing. Pt voiced no education needs at present and is familiar with heart healthy/low sodium diet. Plan D/C 07/07. Low nutrition risk.
[2019-07-07 16:00] VITALS: BP 100/69
--- NOTE | 2019-07-07 17:17 | NUR ---
PATIENT IS ALERT AND ORIENTED X4, ASSESSMENT CHARTED, AND VSS. MEDS GIVEN SCHEDULED. RFA IV DICONTINUED, RED AND PATEINT DENEIS ANY DISCOMFORT TO ARM, WARM BLANKET APPLIED AND WILL CONTINUE TO MOINTOR. AFIB ON THE MONITOR, AND WILL CONTINUE WITH POC.
[2019-07-07 20:30] VITALS: BP 125/80
[2019-07-08] VITALS (8 sets, daily range): BP systolic 95–123; BP diastolic 60–85
[2019-07-08 06:20] LABS: ALBUMIN 4.5 g/dL (3.4-5.0); CALCIUM 9.2 mg/dL (8.5-10.1); CREATININE 1.5 mg/dL (0.6-1.0); PHOSPHORUS 3.8 mg/dL (2.5-4.9)
[2019-07-08 06:29] LABS: POTASSIUM 2.8 mmol/L (3.5-5.1)
[2019-07-08] MEDS ORDERED: LEVAQUIN 750 M750 MG PO (07:40)
[2019-07-08] MEDS ORDERED: CARVEDILOL3.125 MG PO (07:41)
[2019-07-08] MEDS ORDERED: ALBUTEROL2.5 MG/0.5 INH (07:41)
[2019-07-08] MEDS ORDERED: ELIQUIS5 MG PO (07:41)
[2019-07-08] MEDS ORDERED: PACERONE 200 M200 M1 PO (07:41)
[2019-07-08] MEDS ORDERED: CARDIZEM CD120 MG PO (07:42)
[2019-07-08] MEDS ORDERED: FUROSEMIDE 40 M40 MG PO (07:43)
[2019-07-08] MEDS ORDERED: KLOR-CON M2020 MEQ PO (07:43)
--- NOTE | 2019-07-08 08:18 | NUR ---
Pt is alert and oriented x4. Progressing towards d/c goals. Ht rt irregular afib on monitor. LE edema draining copious amts of yellow fluid. Changes part of LLE dressing last night do to it being saturated. Lasix given as ordered. K 2.[address] Cooper was notified. Potassium 20 meq given po per protocol and day shift ns was informed to f/u with k+ level after 3rd dose. VSS. Afebrile. Lungs diminished but unlabored on 3LNC.
--- NOTE | 2019-07-08 09:47 | NUR ---
PT DISCHARGING TODAY TO HOME WITH [facility] FAXED DC ORDERS/SUMMARY SPOKE WITH VINNY IN INTAKE SHE RECEIVED ORDERS AND WILL NOTIFY PT TIME OF VISITS.
--- NOTE | 2019-07-08 12:14 | NUR ---
Sp with patient via phone. [facility] [place] sr. merchandise planner faxed orders and confirmed they rec rec. Patient rec sat/excercise with need for 2 liters of oxygen with activity. Mt with [facility] delivered oxygen tank to room. Faxed pertinent information to [facility] for home oxygen, Reviewed all with patient and updated RN. Verified address for HH care no further needs.
--- NOTE | 2019-07-08 18:28 | NUR ---
PT CARE ASSUMED AT SHIFT CHANGE. PT ASSESSMENTS CHARTED. PT MEDICATIONS CHARTED. POTASSIUM CRITICAL VALUE 2.7; DR. GOMEZ NOTIFIED. PT TO BE DISCHARGED. IV D/C'D. TELE D/C'D. DAWN D/C'D; PT WEARING BRIEF PER HER REQUEST.
== END 2019-07-08 18:35 | disposition home or self-care (01) | DRG 682 ==
LOC: ER 09:58 → 2N 11:59 → EROBS 11:59 → 2N 13:36
PROVIDERS: Emergency Medicine; Hospitalist; Internal Medicine; Internal Medicine Nephrology; Pediatrics; ADMIT Family Medicine
DX: N17.0 Acute kidney failure with tubular necrosis (principal); J18.9 Pneumonia, unspecified organism; J96.01 Acute respiratory failure with hypoxia; I50.43 Acute on chronic combined systolic (congestive) and diastolic (congestive) heart failure; E87.1 Hypo-osmolality and hyponatremia; L03.116 Cellulitis of left lower limb; L03.115 Cellulitis of right lower limb; N39.0 Urinary tract infection, site not specified; Z68.41 Body mass index [BMI] 40.0-44.9, adult; I11.0 Hypertensive heart disease with heart failure; E66.01 Morbid (severe) obesity due to excess calories; Z09 Encounter for follow-up examination after completed treatment for conditions other than malignant neoplasm; Z86.73 Personal history of transient ischemic attack (TIA), and cerebral infarction without residual deficits; Z96.652 Presence of left artificial knee joint; E78.5 Hyperlipidemia, unspecified; Z90.12 Acquired absence of left breast and nipple; Z98.42 Cataract extraction status, left eye; Z98.41 Cataract extraction status, right eye; Z87.891 Personal history of nicotine dependence; E87.6 Hypokalemia; R73.03 Prediabetes; E78.00 Pure hypercholesterolemia, unspecified; F10.10 Alcohol abuse, uncomplicated; I08.1 Rheumatic disorders of both mitral and tricuspid valves; E87.70 Fluid overload, unspecified; I73.9 Peripheral vascular disease, unspecified; G47.00 Insomnia, unspecified; L97.529 Non-pressure chronic ulcer of other part of left foot with unspecified severity; J06.9 Acute upper respiratory infection, unspecified; B96.5 Pseudomonas (aeruginosa) (mallei) (pseudomallei) as the cause of diseases classified elsewhere; B96.4 Proteus (mirabilis) (morganii) as the cause of diseases classified elsewhere
CPT/HCPCS: 10081; 10797